=== PATIENT | female | born 1995 | race African-American/Black ===

== ENCOUNTER 2016-07-28 16:43 | Emergency (ER) | payer OTHER ==
[~2016-07-28] VITALS: Ht 175.3 cm; Wt 65.0 kg
[~2016-07-28 16:43] MED LIST: ERYT1O EACH EYE; MEDR4PAK3 PO
[2016-07-28 16:46] VITALS: BP 118/85; PULSE 76; RESP 14; TEMP 97.7; O2SAT 100
[2016-07-28 17:32] VITALS: BP 118/86; PULSE 70; RESP 16; TEMP 97.7; O2SAT 100
[2016-07-28] MEDS ORDERED: BIRTH CONTROL (17:34)
--- NOTE | 2016-07-28 17:56 | PD ---
HPI . Itchy rash all over Chief Complaint: Skin Problem Time Seen by Provider: 17:56 Travel History International Travel<30 days: Yes Contact w/Intl Traveler<30days: Yes Name of Country Traveled to: [place] Traveled to known affect area: No History of Present Illness HPI 21-year-old feel so significant past medical history other than eczema here with c/o a rash all over her entire body that is itchy. 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 She denies any facial swelling, angioedema or shortness of breath. PFSH Past Medical History Medical History: Denies Significant Hx Hx Anticoagulant Therapy: No Diabetes: No Diminished Hearing: No Tetanus Vaccination: Unknown ?: Not Past Surgical History Surgical History: No Previous Surgery Social History Alcohol Use: No Tobacco Use: No Substance Use: No Allergies-Medications (Allergen,Severity, Reaction): Coded Allergies: No Known Allergies (Unverified , 07/28/16) Reported Meds & Prescriptions Reported Meds & Active Scripts Active Medrol Dosepak (Methylprednisolone) 4 Mg Dspk 4 Mg PO DIRECTED Per Pharmacist direction Reported [ Control] Review of Systems General / Constitutional: No: Fever Eyes: No: Visual changes HENT: No: Headaches Cardiovascular: No: Chest Pain or Discomfort Respiratory: No: Shortness of Breath Gastrointestinal: No: Abdominal Pain Genitourinary: No: Dysuria Musculoskeletal: No: Pain Skin: Positive Rash, Positive Itching Neurologic: No: Weakness Psychiatric: No: Depression Endocrine: No: Polydipsia Hematologic/Lymphatic: No: Easy Bruising Physical Exam Narrative GENERAL: AAO x 3, no acute distress, Well-nourished, well-developed patient. SKIN: Warm and dry. No visible bruising. Scattered macules over all extremities. NO blisters, excoriations, or cellulitis like lesions. no hives. HEAD: Normocephalic and atraumatic. EYES: No scleral icterus. No injection or drainage. EOM intact, PERRLA ENT: No nasal drainage noted. Mucous membranes pink. Airway patent. NECK: Supple, trachea midline. No JVD. CARDIOVASCULAR: Regular rate and rhythm without murmurs, gallops, or rubs. RESPIRATORY: Breath sounds equal bilaterally. No accessory muscle use. No rhonchi or rales. GASTROINTESTINAL: Abdomen soft, non-tender, nondistended. EXTREMITIES: No cyanosis or edema. BACK: Nontender without obvious deformity. No CVA tenderness. PSYCH: AAO x 3, normal affect. Data Data Last Documented VS Vital Signs Date Time Temp Pulse Resp B/P Pulse Ox O2 Delivery O2 Flow Rate FiO2 07/28/16 17:32 97.7 70 16 118/86 100 MDM Medical Decision Making Medical Screen Exam Complete: Yes Emergency Medical Condition: Yes Medical Record Reviewed: Yes Differential Diagnosis contact dermatitis, less likely scabies, less likely bed bugs Narrative Course 21-year-old feel so significant past medical history other than eczema here with c/o a rash all over her entire body that is itchy. 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 She denies any facial swelling, angioedema or shortness of breath. Patient seen and examined. She appears to have a contact dermatitis. I do not recommend any testing as this is very mild. I recommend a short course of steroids. Advised that she should try to limit her contact with dogs and grass and look for potential triggers. Patient verbalized understanding of instructions, questions were answered, and thanked me for their care. I advised them if their condition worsens, please return to the nearest emergency room for further care. Diagnosis Primary Impression: Contact dermatitis Qualified Code: L23.9 - Allergic contact dermatitis, unspecified trigger Patient Instructions: Contact Dermatitis (ED), General Instructions Additional Instructions: Please return to emergency department if your symptoms return or worsen. Follow up with your primary care provider. Take medications as prescribed. Scripts Methylprednisolone Dosepak (Medrol Dosepak)4 Mg Dspk4 Mg PO DIRECTED #1 DSPK Ref 0 Per Pharmacist direction Prov:Nesha Bains DO 07/28/16 Disposition: 01 DISCHARGE HOME Condition: Stable Margot Perez Jul 28, 2016 17:56
[2016-07-28] MEDS ORDERED: MEDR4PAK PO (18:02)
== END 2016-07-28 18:08 | disposition home or self-care (01) ==
LOC: PHEFT 16:43
DX: L23.9 Allergic contact dermatitis, unspecified cause (principal)
CPT/HCPCS: 99282

== ENCOUNTER 2016-10-15 16:35 | Emergency (ER) | payer OTHER ==
[~2016-10-15] VITALS: Ht 175.3 cm; Wt 64.0 kg
[~2016-10-15 16:35] MED LIST changes: +BIRTH CONTROL; -ERYT1O EACH EYE; +MEDR4PAK PO; -MEDR4PAK3 PO
[2016-10-15 16:38] VITALS: BP 119/79; PULSE 81; RESP 16; TEMP 98.2; O2SAT 99
[2016-10-15] MEDS ORDERED: PENICILLIN (16:41)
[2016-10-15] MEDS ORDERED: DEXAMETHASONE SOD PHOS 4 MG/ML VIAL IM ONE (17:15)
--- NOTE | 2016-10-15 17:18 | PD ---
HPI Chief Complaint: ENT Complaint Time Seen by Provider: 17:13 Travel History International Travel<30 days: No Contact w/Intl Traveler<30days: No Traveled to known affect area: No History of Present Illness HPI 21-year-old female presents to the emergency room for evaluation of streptococcal pharyngitis. Patient states 4 days ago at school her physician stated "he tested positive for strep." He gave her prescription for penicillin which she has been taking as prescribed: 500 mg twice daily. Patient states in the past when she has had strep throat, by now there is improvement in symptoms but she has not felt any better. Pain is radiating into her neck and ear. She denies fever, chills, nausea, and vomiting. She reports pain with eating and drinking but is able to do so. PFSH Past Medical History Medical History: Denies Significant Hx Hx Anticoagulant Therapy: No Diabetes: No Diminished Hearing: No Tetanus Vaccination: Unknown ?: Not Past Surgical History Surgical History: No Previous Surgery Social History Alcohol Use: No Tobacco Use: No Substance Use: No Allergies-Medications (Allergen,Severity, Reaction): Coded Allergies: No Known Allergies (Unverified , 10/15/16) Reported Meds & Prescriptions Reported Meds & Active Scripts Active Magic Mouthwash Pediatric/Adult Liq (Lidocaine/Diphenhydr/Alum/Mg/Simeth) 60 Ml Susp 5 Ml SWISH-SWAL ACHS Each 5mL contains: Diphenydramine 4.5mg, Viscous Lidocaine 2% 10mg, Maalox Advanced Regular Strength 2.7ml Clindamycin (Clindamycin HCl) 150 Mg Cap 300 Mg PO Q8HR 10 Days Reported [Penicillin] [ Control] Review of Systems Except as stated in HPI: all other systems reviewed are Neg Physical Exam Narrative GENERAL: Well-nourished, well-developed female in no acute distress. Afebrile. Ambulatory. SKIN: Focused skin assessment warm/dry. HEAD: Normocephalic. EYES: No scleral icterus. No injection or drainage. EARS: Bilateral pinnae and external canals appear within normal limits. Bilateral tympanic membranes without erythema, dullness or perforation. ENT: Mucosa pink and moist. Mild erythema and moderate exudates. No uvular edema. No uvular, palatal, or tonsillar deviation. Airway patent. Right tonsil is 1+, left tonsil is 2+. NECK: Supple, trachea midline. No JVD or lymphadenopathy. CARDIOVASCULAR: Regular rate and rhythm without murmurs, gallops, or rubs. RESPIRATORY: Breath sounds equal bilaterally. No accessory muscle use. NEUROLOGICAL: Awake and alert. No obvious cranial nerve deficits. Motor grossly within normal limits. Normal speech. Negative Brudzinski and Kernig signs. Data Data Last Documented VS Vital Signs Date Time Temp Pulse Resp B/P Pulse Ox O2 Delivery O2 Flow Rate FiO2 10/15/16 16:38 98.2 81 16 119/79 99 Orders Dexamethasone Inj (Decadron Inj) (10/15/16 17:15) MDM Medical Decision Making Medical Screen Exam Complete: Yes Emergency Medical Condition: Yes Medical Record Reviewed: Yes Differential Diagnosis Streptococcal pharyngitis versus mononucleosis versus viral pharyngitis Narrative Course 21-year-old female presents to the emergency room for evaluation of sore throat for the past 4 days. Patient states she had a rapid strep test performed at her school and it came back positive. She started on penicillin but states her symptoms have not improved. No fever or chills. Physical exam reveals mild erythema of the pharynx. Tonsils are 1+ on the right and 2+ on the left. There is moderate exudate on the left. Given patient's history of confirmed rapid strep, there is concern that the strap is resistant to penicillin. She will be discharged with clindamycin and prescription for Magic mouthwash. Told to follow up with her primary care physician or return for worsening symptoms. She understands and agrees to plan. Diagnosis Primary Impression: Acute streptococcal pharyngitis Referrals: Primary Care Physician Patient Instructions: General Instructions, Strep Throat (ED) Additional Instructions: Rest and drink plenty of fluids. Use Magic mouthwash as directed, as needed for pain. Take ibuprofen with food as directed, as needed for pain. Stop taking penicillin. Take clindamycin as directed. Follow-up with a primary care physician. Return to the emergency room for worsening symptoms. Med/Other Pt SpecificInfo: Prescription(s) given Scripts Pgnsrsgtfusukmh-Mwowggvwa-Jgz-Alum-Simeth Liq (Magic Mouthwash Pediatric/Adult Liq)60 Ml Susp5 Ml SWISH-SWAL ACHS #60 ML Ref 0 Each 5mL contains: Diphenydramine 4.5mg, Viscous Lidocaine 2% 10mg, Maalox Advanced Regular Strength 2.7ml Prov:Celena Chand MD 10/15/16 Clindamycin 150 Mg [id number] Mg PO Q8HR 10 Days Ref 0 Prov:Celena Chand MD 10/15/16 Disposition: 01 DISCHARGE HOME Condition: Stable Keiko Pedraza Oct 15, 2016 17:18
[2016-10-15] MEDS ORDERED: CLIN1CAP5 PO (17:19)
[2016-10-15] MEDS ORDERED: MAGICPED SWISH-SWAL (17:20)
== END 2016-10-15 17:26 | disposition home or self-care (01) ==
LOC: PHEFT 16:35
DX: J02.0 Streptococcal pharyngitis (principal); M54.2 Cervicalgia; H92.09 Otalgia, unspecified ear
CPT/HCPCS: 96372; 99284; J1100